=== PATIENT | male | born 1995 | race Caucasian/White ===

== ENCOUNTER 2016-10-07 19:41 | Emergency (ER) | payer OTHER ==
--- NOTE | 2016-10-07 22:07 | DIAGNOSTIC IMAGING REPORT ---
PROCEDURE: CT ABD/PELVIS WITH CONTRAST INDICATION: Nausea. Vomiting. Diarrhea. Elevated white blood count (12,200). TECHNIQUE: of Isovue 300 were injected intravenously and axial images were obtained of the entire abdomen and pelvis with sagittal and coronal reformations. COMPARISON: None. FINDINGS: ABDOMEN: There is a 20 - 30 cm segment of moderate abnormal mucosal thickening of the distal ileum. This is associated a small amount of adjacent free fluid, mildly prominent mesenteric lymph nodes. Colon and appendix appear normal. Gallbladder is normal. Mild to moderate fatty infiltration of the liver. the distal ileum associated with small amount of localized fluid. Spleen (13.5 cm), pancreas, kidneys, and aorta are normal. Bilateral spondylolysis defects at L5, but no evidence of spondylolisthesis. PELVIS: Small amount of free fluid in the pelvis. Pelvic structures are normal. IMPRESSION: 1. There is a 20-30 cm segment of abnormal mucosal thickening of the distal ileum. Overall appearance is most compatible with segmental inflammatory bowel disease (e.g., Crohn disease). Infectious etiology is less likely. 2. Associated small amount of free fluid in the right lower quadrant and pelvis. 3. Associated mildly prominent right mesenteric lymph nodes. 4. Fatty infiltration of the liver. 5. Bilateral spondylolysis defects L5, but no evidence of spondylolisthesis. 6. Findings discussed with NANCY Leon. All CT scans at this facility use dose modulation, iterative reconstruction, and/or weight-based dosing when appropriate to reduce radiation dose to as low as reasonably achievable.
--- NOTE | 2016-10-07 22:11 | ED NURSING NOTES ---
Clinical Report - Nurses [facility] [address] [place] [address] 10/07/2016 19:43 Patient: HARJEET ARAGON TRIAGE Triage time 20:Oct 07 2016. Acuity: LEVEL 3. Chief Complaint: ABDOMINAL PAIN, NAUSEA, VOMITING and DIARRHEA. SEPSIS SCREEN: Sepsis Screen: negative. Negative (no infection suspected/documented). DEANDRA COMA SCORE: Deandra Coma Scale: 15- eyes open spontaneously (4); best verbal response- oriented x 4 (5); best motor response- obeys commands (6). --20:23 Yenny Mcmahon 20:19 10/07/16. BP: 158/98. HR: 100. RR: 18. O2 saturation: 97%. Temp: 98.4 F (oral). Pain level now: 10/01. --20:23 Yenny Mcmahon. Weight: 136 kg stated. Height/Length: 70 inches Per Patient. BMI: 43. --20:19 Yenny Mcmahon. Medications None. --20:22 Yenny Mcmahon. Allergies No Known Drug Allergy. --20:22 Yneny Mcmahon. Medication/allergy information source: the patient. --20:23 Yenny Mcmahon. History Arrived by private vehicle. Historian: patient. Primary physician (none). ( Patient reports abdominal pain for three days. He reports nausea, vomiting and diarrhea. He reports that one year ago he was being seen regarding a potential diagnosis for chrohns. He reports that he lost his insurance and did not complete treatment. Patient reports decreased oral intake.). PAST MEDICAL HX: Immunizations: status is unknown. SOCIAL HX: Never smoker. History of drug use: marijuana. No alcohol use. No recent travel. No infectious disease exposure. No known contact with a sick individual. ABUSE ASSESSMENT: No report of abuse. FALL RISK ASSESSMENT: Fall risk assessment completed. No fall risk identified. NUTRITIONAL RISK ASSESSMENT: The nutritional risk assessment revealed no deficiencies. FUNCTIONAL ASSESSMENT: Functional assessment: no impairments noted. LEARNING NEEDS ASSESSMENT: The learning needs assessment revealed no barriers. SKIN INTEGRITY ASSESSMENT: Skin integrity risk assessment completed. No skin integrity risk identified. --20:23 Yenny Mcmahon. PROBLEMS: no known problems. ADDITIONAL SURGERIES: Tonsillectomy. --20:22 Yenny Mcmahon. Interventions ID band on patient. To treatment room. --20:23 Yenny Mcmahon. PHYSICAL ASSESSMENT GENERAL / NEURO / PSYCH: Alert. Oriented X 4. Appears in no acute distress. HEENT: Mucous membranes are pink. RESPIRATORY: Respirations not labored. CVS: Cardiac rhythm: sinus tachycardia; (100). GI / : Abdomen soft. Abdominal tenderness in the periumbilical area. SKIN: Skin is warm and dry. --20:23 Yenny Mcmahon. NURSING PROGRESS NOTES Pulse oximeter and NIBP monitor placed on patient; monitor alarms on. Patient gowned. Reassurance given to the patient. Two patient identifiers checked. Call light placed in reach. Side rails up x 1. Bed placed in lowest position. Brakes of bed on. Patient ready for evaluation- chart flagged and ED physician notified. --20:24 Yenny Mcmahon 20:40 10/07/2016 Site #1 started via IV in the right hand with an 20g angiocath, with aseptic technique and good blood return; one attempt. Blood drawn: rainbow set. Labeled in the presence of the patient and sent to the lab. Saline lock flushed with 10 mL saline. --20:55 Yenny Mcmahon Patient ID band checked for patient name and birthdate: patient confirmed. Blood samples drawn from the right hand peripheral IV site with Vacutainer by nurse ; labeled in presence of the patient and sent to lab: rainbow set. Line flushed with 10 mL normal saline post blood draw. Patient ID band checked for patient name and birthdate: patient confirmed. Instructions provided to collect clean catch urine and patient verbalized understanding. Clean catch urine collected with return of yellow-colored clear urine; sample sent to lab for urinalysis. Specimen labeled in the presence of the patient. --20:56 Yenny Mcmahon 21:01 10/07/2016 Started bag #1 1000 mL IV Fluids IV NS (Saline); at 1000 mL/hr over 1 hour(s) via site #1. Allergies verified and confirmed 5 rights. IV patency established. IV site checked: no pain, redness, or swelling. IV flushed thoroughly pre- and post-medication administration. --21:01 Yenny Mcmahon 21:10/07/2016 Toradol IVP 30 mg given over 1 minute(s) via site #1. Allergies verified and confirmed 5 rights. IV patency established. IV site checked: no pain, redness, or swelling. IV flushed thoroughly pre- and post-medication administration. IVP given by RN. --21:01 Yenny Mcmahon 21:10/07/2016 Zofran (Ondansetron HCl) IVP 4 mg given over 1 minute(s) via site #1. Allergies verified and confirmed 5 rights. IV patency established. IV site checked: no pain, redness, or swelling. IV flushed thoroughly pre- and post-medication administration. IVP given by RN. --21:02 Yenny Mcmahon 21:08 10/07/16. BP: 142/94. HR: 77. O2 saturation: 98%. --21:08 McQuoid, Vickie, ER Tech1 ( Lab at bedside for redraw). --21:14 Yenny Mcmahon Patient transported to [place] by stretcher with tech. (21:33 Oct 07 2016). --21:33 Yenny Mcmahon 22:11 10/07/2016 IV Fluids IV NS Discontinued: bag #1 completed. Total amount infused: 1000 mL. IV patency established. IV site checked: no pain, redness, or swelling. IV flushed thoroughly. --22:11 Yenny Mcmahon 22:17 10/07/2016 Decadron IVP 10 mg given over 4 minute(s) via site #1. Allergies verified and confirmed 5 rights. IV patency established. IV site checked: no pain, redness, or swelling. IV flushed thoroughly pre- and post-medication administration. IVP given by RN. --22:17 Yenny Mcmahon. DISPOSITION / DISCHARGE 22:15 10/07/16. BP: 128/60. HR: 70. RR: 20. O2 saturation: 98% on room air. Pain level now: 10. --22:16 Yenny Mcmahon 22:35 10/07/16. BP: 128/60. HR: 87. RR: 20. O2 saturation: 97% on room air. Temp: 98.9 F (oral). Pain level now: 06/03. --22:51 Yenny Mcmahon 22:30 10/07/2016 Site #1 removed upon discharge. Catheter intact. Bandaid applied. --22:51 Yenny Mcmahon 22:35 10/07/16. Condition at departure: stable. The goals identified in the patient's plan of care were met. No learning barriers present. Discharge instructions provided and reviewed with the patient. Reviewed medication(s) side effects, precautions, dosing and course information. Prescription(s) given to the patient. Reviewed referral to a criminal justice instructor for followup. Reviewed bland diet and need for increased fluid intake. Work note given. Patient verbalized understanding. Written instructions provided in Arabic. ( Follow up with GI in two days. Return if symptoms worsen. Discussed diet options and need for follow up care to manage symptoms. Patient verbalized understanding and had no additional questions at this time.). The patient was discharged by the physician assistant food service manager. He was discharged home and accompanied by boarder hand. He left the Emergency Department ambulatory and via private vehicle. Nba Player driving. FALL RISK ASSESSMENT: Fall risk assessment completed. No fall risk identified. --22:51 Yenny Mcmahon. Locked/Released at 10/08/2016 1:17 by Yenny Mcmahon,
--- NOTE | 2016-10-07 22:11 | ED ORDER SUMMARY ---
..... Patient: HARJEET ARAGON OrderSheet [facility] VisitID: [id number] [place] [address] 21y, M Registration Date/Time: 10/07/2016 ORDER SHEET Weight: 136.0 kg (stated) Allergies: No Known Drug Allergy GENERAL ORDERS: CT Abd/Pel w Cont (No) (pending) Urgent (20:51 10/07/2016 HBivens A.R.N.P.) (Ack 20:53 RKaruga) (21:41 MCampbell) CBC w Diff Urgent (20:51 10/07/2016 HBivens A.R.N.P.) (Ack 20:53 RKaruga) (22:52 HSoule) CMP Urgent (20:10/07/2016 HBivens A.R.N.P.) (Ack 20:53 RKaruga) (22:52 HSoule) UA-Culture if indicated Urgent (20:10/07/2016 HBivens A.R.N.P.) (Ack 20:53 RKaruga) (22:52 HSoule) Amylase Urgent (20:10/07/2016 HBivens A.R.N.P.) (Ack 20:53 RKaruga) (22:52 HSoule) Lipase Urgent (20:10/07/2016 HBivens A.R.N.P.) (Ack 20:53 RKaruga) (22:52 HSoule) Urine Drug Screen Urgent (20:10/07/2016 HBivens A.R.N.P.) (Ack 20:53 RKaruga) (22:52 HSoule) MEDICATION ORDERS: IV FLUIDS: IV NS : initial bolus 1000 mL (1000 mL/hr), then none - (NOW) (20:51 10/07/2016 HBivens A.R.N.P.) (Ack 20:55 HSoule) (21:01 HSoule) Toradol IV 30 mg (NOW) (20:51 10/07/2016 HBivens A.R.N.P.) (Ack 20:55 HSoule) (21:01 HSoule) Zofran IV 4 mg (NOW) (20:51 10/07/2016 HBivens A.R.N.P.) (Ack 20:55 HSoule) (21:01 HSoule) IV Saline Lock (20:51 10/07/2016 HBivens A.R.N.P.) (20:55 HSoule) Decadron IV 10 mg (NOW) (22:10 10/07/2016 HBivens A.R.N.P.) (Ack 22:11 HSoule) (22:17 HSoule) ORDER SHEET NOTES: [Electronically signed by Shey Chisholm A.R.N.P. (22:39 10/07/2016)] [Electronically signed by Yenny Mcmahon (:17 10/08/2016)] [Electronically locked/signed by Yenny Mcmahon (:10/08/2016)]
--- NOTE | 2016-10-07 22:11 | ED CLINICAL REPORT ---
Clinical Report - Physicians/Mid Levels [facility] [address] [place] [address] 10/07/2016 19:43 Patient: HARJEET ARAGON Time Seen: 20:25; initial patient contact, initial documentation, patient care assumed. Arrived- By private vehicle. Historian- patient. HISTORY OF PRESENT ILLNESS Chief Complaint: VOMITING and DIARRHEA. This started about 3 days ago and is still present. It was abrupt in onset and has been constant. No recent travel. He has had nausea and abdominal pain. He has had vomiting. The vomiting has occurred several times and has been bilious. No feculent emesis, blood-tinged emesis, coffee-grounds emesis, frankly bloody emesis or unusually dark emesis. He has had severe diarrhea. This has occurred numerous times. It has been watery. No bloody, mucous containing or blood-tinged diarrhea. No black stools, bloody stools, constipation, flank pain or history of possible bad food exposure. No known contact with a sick individual or change in routine. Has not recently been camping or on antibiotics. The illness is described as moderate. Similar symptoms previously: Many times, chronically, milder. ( was told about a year ago, he probably had chrohns disease, never f/u with anyone). Recent medical care: Not recently seen/assessed. REVIEW OF SYSTEMS No fever, difficulty with urination, dark urine, chest pain or difficulty breathing. All systems otherwise negative, except as recorded above. PAST HISTORY See nurses notes. PROBLEMS: no known problems. ADDITIONAL SURGERIES: Tonsillectomy. --20:22 Yenny Mcmahon. SOCIAL HISTORY Never smoker. History of occasional drug use: marijuana. No alcohol use. No recent travel. Is a local resident. FAMILY HISTORY Negative. ADDITIONAL NOTES The nursing notes have been reviewed with agreement regarding the chief complaint, HPI, ROS, PMH and patient medications and allergies. PHYSICAL EXAM Vital Signs: 10/07/2016 20:19 BP: 158/98. HR: 100. RR: 18. O2 saturation: 97%. Temp: 98.4 F. Pain level now: 6/10. Have been reviewed as abnormal. Hypertensive. Heart rate normal. Respiratory rate normal. Temperature normal. Oxygen saturation normal. Appearance: Alert. Oriented X3. No acute distress. Eyes: Pupils equal, round and reactive to light. Eyes normal inspection. Neck: Normal inspection. Neck supple. CVS: Normal heart rate and rhythm. Heart sounds normal. Pulses normal. Respiratory: No respiratory distress. Breath sounds normal. Abdomen: Soft. Mild tenderness in the periumbilical area. No guarding, rebound tenderness or Garg's, obturator or psoas sign present. Bowel sounds normal. No organomegaly. No mass. Moderately obese. Tenderness present. Back: Normal inspection. Skin: Skin warm and dry. Normal skin color. No rash. Normal skin turgor. Extremities: Extremities exhibit normal ROM. No lower extremity edema. Neuro: Oriented X 3. No motor deficit. No sensory deficit. LABS, X-RAYS, AND EKG Abdominal CT: . IMPRESSION: 1. There is a 20-30 cm segment of abnormal mucosal thickening of the distal ileum. Overall appearance is most compatible with segmental inflammatory bowel disease (e.g., Crohn disease). Infectious etiology is less likely. 2. Associated small amount of free fluid in the right lower quadrant and pelvis. 3. Associated mildly prominent right mesenteric lymph nodes. 4. Fatty infiltration of the liver. 5. Bilateral spondylolysis defects L5, but no evidence of spondylolisthesis. 6. Findings discussed with NANCY Leon. All CT scans at this facility use dose modulation, iterative reconstruction, and/or weight-based dosing when appropriate to reduce radiation dose to as low as reasonably achievable. Electronically Final signed by:Dung Escalante MD 10/07/2016 10:02:42 PM. The study was interpreted by the radiologist and discussed with the radiologist. Interpretation time: 22:04. Laboratory Tests: UA-Culture if indicated: (CARMELA: 10/07/2016 20:30) ( MsgRcvd 10/07/2016 21:26) Final results Test Result Flag Units (Reference) URINE COLOR YELLOW URINE APPEARANCE CLEAR URINE GLUCOSE NEGATIVE (NEGATIVE) URINE BILIRUBIN ICTOTEST NEGATIVE (NEGATIVE) URINE KETONE 1+ (NEGATIVE) URINE SPECIFIC GRAVITY 1.025 (1.010-1.030) URINE PH 6.0 (5.0-8.0) URINE PROTEIN NEGATIVE (NEGATIVE) URINE UROBILINOGEN 0.2 EU/dL (0.2-1.0) URINE NITRITE NEGATIVE (NEGATIVE) URINE BLOOD NEGATIVE (NEGATIVE) URINE LEUK ESTERASE NEGATIVE (NEGATIVE) URINE RBC 0-1 rbc/hpf (0-1) URINE WBC 10-15 wbc/hpf (0-1) URINE EPITHELIAL CELLS 0-1 EPI/hpf (0-5) URINE BACTERIA FEW (1+) (NONE SEEN) URINE COMMENT CULTURE INDICATED 2+ MUCUSURINE CULTURES ARE SET-UP BASED ON THE FOLLOWING CRITERIA:POSITIVE NITRITEPOSITIVE LEUKOCYTE ESTERASEGREATER THAN 10 WHITE BLOOD CELLSMODERATE (2+) OR GREATER BACTERIA CBC w Diff: (CARMELA: 10/07/2016 21:05) ( [facility] 10/07/2016 21:17) Final results Test Result Flag Units (Reference) WHITE BLOOD COUNT 12.2 H K/uL (4.5-11.5) RED BLOOD COUNT 5.67 M/uL (4.50-5.90) HEMOGLOBIN 16.4 gm/dL (13.5-17.5) HEMATOCRIT 48.5 % (41.0-53.0) MEAN CELL VOLUME 86 fL (80-100) MEAN CORPUSCULAR HGB 29 pg (26-34) MEAN CORPUSCULAR HGB CONC 34 g/dL (31-37) RED CELL DISTRIBUTION WIDTH 12.7 % (11.6-14.8) PLATELET COUNT 343 K/uL (150-400) NEUTROPHIL % 67.2 % (50-75) LYMPH % 20.3 L % (25-40) MONO % 9.1 % (3-14) EOSINOPHIL % 2.6 % (0-4) BASOPHIL % 0.8 % (0-2) Urine Drug Screen: (CARMELA: 10/07/2016 20:30) ( [facility] 10/07/2016 21:27) Final results Test Result Flag Units (Reference) AMPHETAMINE/METHAMPHETAMINE NEGATIVE (NEGATIVE) BARBITURATE NEGATIVE (NEGATIVE) BENZODIAZEPINE NEGATIVE (NEGATIVE) CANNABINOID POSITIVE H (NEGATIVE) COCAINE NEGATIVE (NEGATIVE) ECSTASY NEGATIVE (NEGATIVE) METHADONE NEGATIVE (NEGATIVE) OPIATE NEGATIVE (NEGATIVE) The urine drug screen is a qualitative screening test fordrug overdose and abuse. All screen results should beconsidered as presumptive.Drugs screened for are as follows:BenzodiazepinesCocaineAmphetamines/MetamphetaminesTHC (Tetrahydrocannabinol)OpiatesBarbituratesEcstasyMethadonePositive results are unconfirmed. For confirmation, notifythe lab for the specimen to be sent to the reference lab.All confirmations must be performed by a differentmethodology.The ingestion of natural herbal and plant productscontaining Ephedra/Ephedra metabolites can produce in urineone or more substances capable of cross reacting withamphetamine/methamphetamine immunoassays. These testsprovide a preliminary result only. A more specificalternative chemical method must be used to obtain aconfirmed analytical result. CMP: (CARMELA: 10/07/2016 21:05) ( MsgRcvd 10/07/2016 21:26) Final results Test Result Flag Units (Reference) GLUCOSE 93 mg/dL (70-110) BUN 11 mg/dL (7-18) CREATININE 0.9 mg/dL (0.6-1.3) Estimated GFR >60 mL/min Estimated GFR- >60 mL/min Note: Persistent reduction over 3 months in eGFR<60 mL/min/1.73 m2 defines CKD. Patients with eGFR values>=60 mL/min/1.73 m2 may also have CKD if evidence ofpersistent proteinuria. Additional information may be foundat www.kidney.org. SODIUM 143 mmol/L (136-145) POTASSIUM 3.9 mmol/L (3.5-5.1) CHLORIDE 105 mmol/L (98-107) CARBON DIOXIDE 26 mmol/L (21-32) CALCIUM 9.7 mg/dL (8.5-10.1) TOTAL PROTEIN 8.2 g/dL (6.4-8.2) ALBUMIN 4.0 g/dL (3.3-5.0) BILIRUBIN, TOTAL 0.6 mg/dL (0.0-1.0) ALKALINE PHOSPHATASE 73 U/L (46-116) AST (SGOT) 24 U/L (15-37) ALT (SGPT) 60 U/L (12-78) LIPASE 79 U/L (73-393) AMYLASE 39 U/L (25-115) . PROGRESS AND PROCEDURES Patient counseled in person regarding the patient's stable condition, test results and diagnosis. Differential Diagnosis: I considered gastritis, gastroenteritis, peptic ulcer disease, gastroesophageal reflux disease, acute appendicitis, diverticulitis, colon cancer, ulcerative colitis, Crohn's disease, obstipation, biliary colic, cholecystitis, cholelithiasis, hepatitis, pancreatitis, common bile duct obstruction, urinary tract infection, ureterolithiasis and viral syndrome as a possible cause of abdominal pain in this patient. This is a partial list of diagnoses considered. Above considerations are based on history, physical exam, reassessment, laboratory data and other information. Differential diagnosis was discussed with patient. Disposition: Discharged home in good and improved condition (22:10). Condition: good and stable. CLINICAL IMPRESSION Crohn's disease in the small intestine. No complications present. INSTRUCTIONS Do not work today, for two days. Avoid fried/greasy foods. (HTN). Warnings: GENERAL WARNINGS: Return or contact your physician immediately if your condition worsens or changes unexpectedly, if not improving as expected, or if other problems arise. SPECIFICALLY, return if you develop pain in the abdomen or pelvis, fever, the inability to keep fluids down, blood in vomitus, blood in diarrhea, fainting or lightheadedness. Prescription Medications: Zofran 4 mg: Take 1 orally every six hours as needed for nausea/vomiting. Dispense ten (10). No refills. Substitution is permissible. Bentyl 20 mg tablets: take 1 orally every 6 hours as needed. Dispense thirty (30). No refills. Substitution is permissible. Ultram 50 mg tablets: take 1-2 orally every 6 hours as needed for pain. Dispense twenty (20). No refills. Substitution is permissible. Medrol Dosepak: take according to package directions. Dispense one (1) dosepak. No refills. Substitution is permissible. Understanding of the discharge instructions verbalized by patient. Follow-up with: Pro William MD, Gastroenterology, , [address] , , [place], [id number]; Umang Hogan MD, Gastroenterology, , [facility], [address], [place], [id number]; Anuja Irving MD, Gastroenteroloy, , [address] [place] [address] [address], [place], [id number]; Juan Antonio Whiting MD, Gastroenteroloy, , [address] [place] [address] [address], [place], [id number]; Reed Romero MD, Gastroenteroloy, , [address] [place] [address] [address], [place], [id number] Follow up in about two days even if well. Call for an appointment. Summary of care provided to patient. (Electronically signed by Shey Chisholm A.R.N.P. 10/07/2016 22:39)
--- NOTE | 2016-10-07 22:11 | ED CLINICAL REPORT ---
Clinical Report - Physicians/Mid Levels [facility] [address] [place] [address] 10/07/2016 19:43 Patient: HARJEET ARAGON Time Seen: 20:25; initial patient contact, initial documentation, patient care assumed. Arrived- By private vehicle. Historian- patient. HISTORY OF PRESENT ILLNESS Chief Complaint: VOMITING and DIARRHEA. This started about 3 days ago and is still present. It was abrupt in onset and has been constant. No recent travel. He has had nausea and abdominal pain. He has had vomiting. The vomiting has occurred several times and has been bilious. No feculent emesis, blood-tinged emesis, coffee-grounds emesis, frankly bloody emesis or unusually dark emesis. He has had severe diarrhea. This has occurred numerous times. It has been watery. No bloody, mucous containing or blood-tinged diarrhea. No black stools, bloody stools, constipation, flank pain or history of possible bad food exposure. No known contact with a sick individual or change in routine. Has not recently been camping or on antibiotics. The illness is described as moderate. Similar symptoms previously: Many times, chronically, milder. ( was told about a year ago, he probably had chrohns disease, never f/u with anyone). Recent medical care: Not recently seen/assessed. REVIEW OF SYSTEMS No fever, difficulty with urination, dark urine, chest pain or difficulty breathing. All systems otherwise negative, except as recorded above. PAST HISTORY See nurses notes. PROBLEMS: no known problems. ADDITIONAL SURGERIES: Tonsillectomy. --20:22 Yenny Mcmahon. SOCIAL HISTORY Never smoker. History of occasional drug use: marijuana. No alcohol use. No recent travel. Is a local resident. FAMILY HISTORY Negative. ADDITIONAL NOTES The nursing notes have been reviewed with agreement regarding the chief complaint, HPI, ROS, PMH and patient medications and allergies. PHYSICAL EXAM Vital Signs: 10/07/2016 20:19 BP: 158/98. HR: 100. RR: 18. O2 saturation: 97%. Temp: 98.4 F. Pain level now: 6/10. Have been reviewed as abnormal. Hypertensive. Heart rate normal. Respiratory rate normal. Temperature normal. Oxygen saturation normal. Appearance: Alert. Oriented X3. No acute distress. Eyes: Pupils equal, round and reactive to light. Eyes normal inspection. Neck: Normal inspection. Neck supple. CVS: Normal heart rate and rhythm. Heart sounds normal. Pulses normal. Respiratory: No respiratory distress. Breath sounds normal. Abdomen: Soft. Mild tenderness in the periumbilical area. No guarding, rebound tenderness or Garg's, obturator or psoas sign present. Bowel sounds normal. No organomegaly. No mass. Moderately obese. Tenderness present. Back: Normal inspection. Skin: Skin warm and dry. Normal skin color. No rash. Normal skin turgor. Extremities: Extremities exhibit normal ROM. No lower extremity edema. Neuro: Oriented X 3. No motor deficit. No sensory deficit. LABS, X-RAYS, AND EKG Abdominal CT: . IMPRESSION: 1. There is a 20-30 cm segment of abnormal mucosal thickening of the distal ileum. Overall appearance is most compatible with segmental inflammatory bowel disease (e.g., Crohn disease). Infectious etiology is less likely. 2. Associated small amount of free fluid in the right lower quadrant and pelvis. 3. Associated mildly prominent right mesenteric lymph nodes. 4. Fatty infiltration of the liver. 5. Bilateral spondylolysis defects L5, but no evidence of spondylolisthesis. 6. Findings discussed with NANCY Leon. All CT scans at this facility use dose modulation, iterative reconstruction, and/or weight-based dosing when appropriate to reduce radiation dose to as low as reasonably achievable. Electronically Final signed by:Dung Escalante MD 10/07/2016 10:02:42 PM. The study was interpreted by the radiologist and discussed with the radiologist. Interpretation time: 22:04. Laboratory Tests: UA-Culture if indicated: (CARMELA: 10/07/2016 20:30) ( MsgRcvd 10/07/2016 21:26) Final results Test Result Flag Units (Reference) URINE COLOR YELLOW URINE APPEARANCE CLEAR URINE GLUCOSE NEGATIVE (NEGATIVE) URINE BILIRUBIN ICTOTEST NEGATIVE (NEGATIVE) URINE KETONE 1+ (NEGATIVE) URINE SPECIFIC GRAVITY 1.025 (1.010-1.030) URINE PH 6.0 (5.0-8.0) URINE PROTEIN NEGATIVE (NEGATIVE) URINE UROBILINOGEN 0.2 EU/dL (0.2-1.0) URINE NITRITE NEGATIVE (NEGATIVE) URINE BLOOD NEGATIVE (NEGATIVE) URINE LEUK ESTERASE NEGATIVE (NEGATIVE) URINE RBC 0-1 rbc/hpf (0-1) URINE WBC 10-15 wbc/hpf (0-1) URINE EPITHELIAL CELLS 0-1 EPI/hpf (0-5) URINE BACTERIA FEW (1+) (NONE SEEN) URINE COMMENT CULTURE INDICATED 2+ MUCUSURINE CULTURES ARE SET-UP BASED ON THE FOLLOWING CRITERIA:POSITIVE NITRITEPOSITIVE LEUKOCYTE ESTERASEGREATER THAN 10 WHITE BLOOD CELLSMODERATE (2+) OR GREATER BACTERIA CBC w Diff: (CARMELA: 10/07/2016 21:05) ( [facility] 10/07/2016 21:17) Final results Test Result Flag Units (Reference) WHITE BLOOD COUNT 12.2 H K/uL (4.5-11.5) RED BLOOD COUNT 5.67 M/uL (4.50-5.90) HEMOGLOBIN 16.4 gm/dL (13.5-17.5) HEMATOCRIT 48.5 % (41.0-53.0) MEAN CELL VOLUME 86 fL (80-100) MEAN CORPUSCULAR HGB 29 pg (26-34) MEAN CORPUSCULAR HGB CONC 34 g/dL (31-37) RED CELL DISTRIBUTION WIDTH 12.7 % (11.6-14.8) PLATELET COUNT 343 K/uL (150-400) NEUTROPHIL % 67.2 % (50-75) LYMPH % 20.3 L % (25-40) MONO % 9.1 % (3-14) EOSINOPHIL % 2.6 % (0-4) BASOPHIL % 0.8 % (0-2) Urine Drug Screen: (CARMELA: 10/07/2016 20:30) ( [facility] 10/07/2016 21:27) Final results Test Result Flag Units (Reference) AMPHETAMINE/METHAMPHETAMINE NEGATIVE (NEGATIVE) BARBITURATE NEGATIVE (NEGATIVE) BENZODIAZEPINE NEGATIVE (NEGATIVE) CANNABINOID POSITIVE H (NEGATIVE) COCAINE NEGATIVE (NEGATIVE) ECSTASY NEGATIVE (NEGATIVE) METHADONE NEGATIVE (NEGATIVE) OPIATE NEGATIVE (NEGATIVE) The urine drug screen is a qualitative screening test fordrug overdose and abuse. All screen results should beconsidered as presumptive.Drugs screened for are as follows:BenzodiazepinesCocaineAmphetamines/MetamphetaminesTHC (Tetrahydrocannabinol)OpiatesBarbituratesEcstasyMethadonePositive results are unconfirmed. For confirmation, notifythe lab for the specimen to be sent to the reference lab.All confirmations must be performed by a differentmethodology.The ingestion of natural herbal and plant productscontaining Ephedra/Ephedra metabolites can produce in urineone or more substances capable of cross reacting withamphetamine/methamphetamine immunoassays. These testsprovide a preliminary result only. A more specificalternative chemical method must be used to obtain aconfirmed analytical result. CMP: (CARMELA: 10/07/2016 21:05) ( MsgRcvd 10/07/2016 21:26) Final results Test Result Flag Units (Reference) GLUCOSE 93 mg/dL (70-110) BUN 11 mg/dL (7-18) CREATININE 0.9 mg/dL (0.6-1.3) Estimated GFR >60 mL/min Estimated GFR- >60 mL/min Note: Persistent reduction over 3 months in eGFR<60 mL/min/1.73 m2 defines CKD. Patients with eGFR values>=60 mL/min/1.73 m2 may also have CKD if evidence ofpersistent proteinuria. Additional information may be foundat www.kidney.org. SODIUM 143 mmol/L (136-145) POTASSIUM 3.9 mmol/L (3.5-5.1) CHLORIDE 105 mmol/L (98-107) CARBON DIOXIDE 26 mmol/L (21-32) CALCIUM 9.7 mg/dL (8.5-10.1) TOTAL PROTEIN 8.2 g/dL (6.4-8.2) ALBUMIN 4.0 g/dL (3.3-5.0) BILIRUBIN, TOTAL 0.6 mg/dL (0.0-1.0) ALKALINE PHOSPHATASE 73 U/L (46-116) AST (SGOT) 24 U/L (15-37) ALT (SGPT) 60 U/L (12-78) LIPASE 79 U/L (73-393) AMYLASE 39 U/L (25-115) . PROGRESS AND PROCEDURES Patient counseled in person regarding the patient's stable condition, test results and diagnosis. Differential Diagnosis: I considered gastritis, gastroenteritis, peptic ulcer disease, gastroesophageal reflux disease, acute appendicitis, diverticulitis, colon cancer, ulcerative colitis, Crohn's disease, obstipation, biliary colic, cholecystitis, cholelithiasis, hepatitis, pancreatitis, common bile duct obstruction, urinary tract infection, ureterolithiasis and viral syndrome as a possible cause of abdominal pain in this patient. This is a partial list of diagnoses considered. Above considerations are based on history, physical exam, reassessment, laboratory data and other information. Differential diagnosis was discussed with patient. Disposition: Discharged home in good and improved condition (22:10). Condition: good and stable. CLINICAL IMPRESSION Crohn's disease in the small intestine. No complications present. INSTRUCTIONS Do not work today, for two days. Avoid fried/greasy foods. (HTN). Warnings: GENERAL WARNINGS: Return or contact your physician immediately if your condition worsens or changes unexpectedly, if not improving as expected, or if other problems arise. SPECIFICALLY, return if you develop pain in the abdomen or pelvis, fever, the inability to keep fluids down, blood in vomitus, blood in diarrhea, fainting or lightheadedness. Prescription Medications: Zofran 4 mg: Take 1 orally every six hours as needed for nausea/vomiting. Dispense ten (10). No refills. Substitution is permissible. Bentyl 20 mg tablets: take 1 orally every 6 hours as needed. Dispense thirty (30). No refills. Substitution is permissible. Ultram 50 mg tablets: take 1-2 orally every 6 hours as needed for pain. Dispense twenty (20). No refills. Substitution is permissible. Medrol Dosepak: take according to package directions. Dispense one (1) dosepak. No refills. Substitution is permissible. Understanding of the discharge instructions verbalized by patient. Follow-up with: Pro William MD, Gastroenterology, , [address] , , [place], [id number]; Umang Hogan MD, Gastroenterology, , [facility], [address], [place], [id number]; Anuja Irving MD, Gastroenteroloy, , [address] [place] [address] [address], [place], [id number]; Juan Antonio Whiting MD, Gastroenteroloy, , [address] [place] [address] [address], [place], [id number]; Reed Romero MD, Gastroenteroloy, , [address] [place] [address] [address], [place], [id number] Follow up in about two days even if well. Call for an appointment. Summary of care provided to patient. (Electronically signed by Shey Chisholm A.R.N.P. 10/07/2016 22:39)
--- NOTE | 2016-10-07 22:11 | ED ORDER SUMMARY ---
..... Patient: HARJEET ARAGON OrderSheet [facility] VisitID: [id number] [place] [address] 21y, M Registration Date/Time: 10/07/2016 ORDER SHEET Weight: 136.0 kg (stated) Allergies: No Known Drug Allergy GENERAL ORDERS: CT Abd/Pel w Cont (No) (pending) Urgent (20:51 10/07/2016 HBivens A.R.N.P.) (Ack 20:53 RKaruga) (21:41 MCampbell) CBC w Diff Urgent (20:51 10/07/2016 HBivens A.R.N.P.) (Ack 20:53 RKaruga) (22:52 HSoule) CMP Urgent (20:10/07/2016 HBivens A.R.N.P.) (Ack 20:53 RKaruga) (22:52 HSoule) UA-Culture if indicated Urgent (20:10/07/2016 HBivens A.R.N.P.) (Ack 20:53 RKaruga) (22:52 HSoule) Amylase Urgent (20:10/07/2016 HBivens A.R.N.P.) (Ack 20:53 RKaruga) (22:52 HSoule) Lipase Urgent (20:10/07/2016 HBivens A.R.N.P.) (Ack 20:53 RKaruga) (22:52 HSoule) Urine Drug Screen Urgent (20:10/07/2016 HBivens A.R.N.P.) (Ack 20:53 RKaruga) (22:52 HSoule) MEDICATION ORDERS: IV FLUIDS: IV NS : initial bolus 1000 mL (1000 mL/hr), then none - (NOW) (20:51 10/07/2016 HBivens A.R.N.P.) (Ack 20:55 HSoule) (21:01 HSoule) Toradol IV 30 mg (NOW) (20:51 10/07/2016 HBivens A.R.N.P.) (Ack 20:55 HSoule) (21:01 HSoule) Zofran IV 4 mg (NOW) (20:51 10/07/2016 HBivens A.R.N.P.) (Ack 20:55 HSoule) (21:01 HSoule) IV Saline Lock (20:51 10/07/2016 HBivens A.R.N.P.) (20:55 HSoule) Decadron IV 10 mg (NOW) (22:10 10/07/2016 HBivens A.R.N.P.) (Ack 22:11 HSoule) (22:17 HSoule) ORDER SHEET NOTES: [Electronically signed by Shey Chisholm A.R.N.P. (22:39 10/07/2016)] [Electronically signed by Yenny Mcmahon (:17 10/08/2016)] [Electronically locked/signed by Yenny Mcmahon (:10/08/2016)]
--- NOTE | 2016-10-07 22:11 | ED NURSING NOTES ---
Clinical Report - [facility] [address] [place] [address] 10/07/2016 19:43 Patient: HARJEET ARAGON TRIAGE Triage time 20:Oct 07 2016. Acuity: LEVEL 3. Chief Complaint: ABDOMINAL PAIN, NAUSEA, VOMITING and DIARRHEA. SEPSIS SCREEN: Sepsis Screen: negative. Negative (no infection suspected/documented). DEANDRA COMA SCORE: Deandra Coma Scale: 15- eyes open spontaneously (4); best verbal response- oriented x 4 (5); best motor response- obeys commands (6). --20:23 Yenny Mcmahon 20:19 10/07/16. BP: 158/98. HR: 100. RR: 18. O2 saturation: 97%. Temp: 98.4 F (oral). Pain level now: 10/01. --20:23 Yenny Mcmahon. Weight: 136 kg stated. Height/Length: 70 inches Per Patient. BMI: 43. --20:19 Yenny Mcmahon. Medications None. --20:22 Yenny Mcmahon. Allergies No Known Drug Allergy. --20:22 Yenny Mcmahon. Medication/allergy information source: the patient. --20:23 Yenny Mcmahon. History Arrived by private vehicle. Historian: patient. Primary physician (none). ( Patient reports abdominal pain for three days. He reports nausea, vomiting and diarrhea. He reports that one year ago he was being seen regarding a potential diagnosis for chrohns. He reports that he lost his insurance and did not complete treatment. Patient reports decreased oral intake.). PAST MEDICAL HX: Immunizations: status is unknown. SOCIAL HX: Never smoker. History of drug use: marijuana. No alcohol use. No recent travel. No infectious disease exposure. No known contact with a sick individual. ABUSE ASSESSMENT: No report of abuse. FALL RISK ASSESSMENT: Fall risk assessment completed. No fall risk identified. NUTRITIONAL RISK ASSESSMENT: The nutritional risk assessment revealed no deficiencies. FUNCTIONAL ASSESSMENT: Functional assessment: no impairments noted. LEARNING NEEDS ASSESSMENT: The learning needs assessment revealed no barriers. SKIN INTEGRITY ASSESSMENT: Skin integrity risk assessment completed. No skin integrity risk identified. --20:23 Yenny Mcmahon. PROBLEMS: no known problems. ADDITIONAL SURGERIES: Tonsillectomy. --20:22 Yenny Mcmahon. Interventions ID band on patient. To treatment room. --20:23 Yenny Mcmahon. PHYSICAL ASSESSMENT GENERAL / NEURO / PSYCH: Alert. Oriented X 4. Appears in no acute distress. HEENT: Mucous membranes are pink. RESPIRATORY: Respirations not labored. CVS: Cardiac rhythm: sinus tachycardia; (100). GI / : Abdomen soft. Abdominal tenderness in the periumbilical area. SKIN: Skin is warm and dry. --20:23 Yenny Mcmahon. NURSING PROGRESS NOTES Pulse oximeter and NIBP monitor placed on patient; monitor alarms on. Patient gowned. Reassurance given to the patient. Two patient identifiers checked. Call light placed in reach. Side rails up x 1. Bed placed in lowest position. Brakes of bed on. Patient ready for evaluation- chart flagged and ED physician notified. --20:24 Yenny Mcmahon 20:40 10/07/2016 Site #1 started via IV in the right hand with an 20g angiocath, with aseptic technique and good blood return; one attempt. Blood drawn: rainbow set. Labeled in the presence of the patient and sent to the lab. Saline lock flushed with 10 mL saline. --20:55 Yenny Mcmahon Patient ID band checked for patient name and birthdate: patient confirmed. Blood samples drawn from the right hand peripheral IV site with Vacutainer by nurse ; labeled in presence of the patient and sent to lab: rainbow set. Line flushed with 10 mL normal saline post blood draw. Patient ID band checked for patient name and birthdate: patient confirmed. Instructions provided to collect clean catch urine and patient verbalized understanding. Clean catch urine collected with return of yellow-colored clear urine; sample sent to lab for urinalysis. Specimen labeled in the presence of the patient. --20:56 Yenny Mcmahon 21:01 10/07/2016 Started bag #1 1000 mL IV Fluids IV NS (Saline); at 1000 mL/hr over 1 hour(s) via site #1. Allergies verified and confirmed 5 rights. IV patency established. IV site checked: no pain, redness, or swelling. IV flushed thoroughly pre- and post-medication administration. --21:01 Yenny Mcmahon 21:10/07/2016 Toradol IVP 30 mg given over 1 minute(s) via site #1. Allergies verified and confirmed 5 rights. IV patency established. IV site checked: no pain, redness, or swelling. IV flushed thoroughly pre- and post-medication administration. IVP given by RN. --21:01 Yenny Mcmahon 21:10/07/2016 Zofran (Ondansetron HCl) IVP 4 mg given over 1 minute(s) via site #1. Allergies verified and confirmed 5 rights. IV patency established. IV site checked: no pain, redness, or swelling. IV flushed thoroughly pre- and post-medication administration. IVP given by RN. --21:02 Yenny Mcmahon 21:08 10/07/16. BP: 142/94. HR: 77. O2 saturation: 98%. --21:08 McQuoid, Vickie, ER Tech1 ( Lab at bedside for redraw). --21:14 Yenny Mcmahon Patient transported to [place] by stretcher with tech. (21:33 Oct 07 2016). --21:33 Yenny Mcmahon 22:11 10/07/2016 IV Fluids IV NS Discontinued: bag #1 completed. Total amount infused: 1000 mL. IV patency established. IV site checked: no pain, redness, or swelling. IV flushed thoroughly. --22:11 Yenny Mcmahon 22:17 10/07/2016 Decadron IVP 10 mg given over 4 minute(s) via site #1. Allergies verified and confirmed 5 rights. IV patency established. IV site checked: no pain, redness, or swelling. IV flushed thoroughly pre- and post-medication administration. IVP given by RN. --22:17 Yenny Mcmahon. DISPOSITION / DISCHARGE 22:15 10/07/16. BP: 128/60. HR: 70. RR: 20. O2 saturation: 98% on room air. Pain level now: 10. --22:16 Yenny Mcmahon 22:35 10/07/16. BP: 128/60. HR: 87. RR: 20. O2 saturation: 97% on room air. Temp: 98.9 F (oral). Pain level now: 06/03. --22:51 Yenny Mcmahon 22:30 10/07/2016 Site #1 removed upon discharge. Catheter intact. Bandaid applied. --22:51 Yenny Mcmahon 22:35 10/07/16. Condition at departure: stable. The goals identified in the patient's plan of care were met. No learning barriers present. Discharge instructions provided and reviewed with the patient. Reviewed medication(s) side effects, precautions, dosing and course information. Prescription(s) given to the patient. Reviewed referral to a military education coordinator for followup. Reviewed bland diet and need for increased fluid intake. Work note given. Patient verbalized understanding. Written instructions provided in Sami. ( Follow up with GI in two days. Return if symptoms worsen. Discussed diet options and need for follow up care to manage symptoms. Patient verbalized understanding and had no additional questions at this time.). The patient was discharged by the physician surgical services assistant. He was discharged home and accompanied by silver designer. He left the Emergency Department ambulatory and via private vehicle. Crane Manager driving. FALL RISK ASSESSMENT: Fall risk assessment completed. No fall risk identified. --22:51 Yenny Mcmahon. Locked/Released at 10/08/2016 1:17 by Yenny Mcmahon,
--- NOTE | 2016-10-08 01:18 | ED MED RECONCILIATION SUMMARY ---
Patient: HARJEET ARAGON Medication Reconciliation Report [facility] VisitID: [id number] [address] [place] [address] 21y, M Registration Date/Time: 10/07/2016 Weight: 136.0 kg Height/Length: 70 in. BMI: 43.0 ALLERGIES: No Known Drug Allergy The patient's Home Medications are listed below: NONE. The source(s) of the original Home Medication information: patient The following Medications were given to the patient in the Emergency Department: IV NS IV Fluids bolus 0, then 1000 mL/hr, administered: 10/07/2016 9:01:00 PM Toradol [IVP] IVP 30 mg, administered: 10/07/2016 9:01:00 PM Zofran [IVP] IVP 4 mg, administered: 10/07/2016 9:01:00 PM Decadron [IVP] IVP 10 mg, administered: 10/07/2016 10:17:00 PM The following Medications were prescribed to the patient: Zofran 4 mg: Take 1 orally every six hours as needed for nausea/vomiting. Dispense ten (10). No refills. Substitution is permissible. -- Shey Chisholm, A.R.N.P. Bentyl 20 mg tablets: take 1 orally every 6 hours as needed. Dispense thirty (30). No refills. Substitution is permissible. -- Shey Chisholm, A.R.N.P. Ultram 50 mg tablets: take 1-2 orally every 6 hours as needed for pain. Dispense twenty (20). No refills. Substitution is permissible. -- Shey Chisholm A.R.N.P. Medrol Dosepak: take according to package directions. Dispense one (1) dosepak. No refills. Substitution is permissible. -- Shey Chisholm A.R.N.P.
--- NOTE | 2016-10-08 01:18 | ED MED RECONCILIATION SUMMARY ---
Patient: HARJEET ARAGON Medication Reconciliation Report [facility] VisitID: [id number] [address] [place] [address] 21y, M Registration Date/Time: 10/07/2016 Weight: 136.0 kg Height/Length: 70 in. BMI: 43.0 ALLERGIES: No Known Drug Allergy The patient's Home Medications are listed below: NONE. The source(s) of the original Home Medication information: patient The following Medications were given to the patient in the Emergency Department: IV NS IV Fluids bolus 0, then 1000 mL/hr, administered: 10/07/2016 9:01:00 PM Toradol [IVP] IVP 30 mg, administered: 10/07/2016 9:01:00 PM Zofran [IVP] IVP 4 mg, administered: 10/07/2016 9:01:00 PM Decadron [IVP] IVP 10 mg, administered: 10/07/2016 10:17:00 PM The following Medications were prescribed to the patient: Zofran 4 mg: Take 1 orally every six hours as needed for nausea/vomiting. Dispense ten (10). No refills. Substitution is permissible. -- Shey Chisholm, A.R.N.P. Bentyl 20 mg tablets: take 1 orally every 6 hours as needed. Dispense thirty (30). No refills. Substitution is permissible. -- Shey Chisholm, A.R.N.P. Ultram 50 mg tablets: take 1-2 orally every 6 hours as needed for pain. Dispense twenty (20). No refills. Substitution is permissible. -- Shey Chisholm A.R.N.P. Medrol Dosepak: take according to package directions. Dispense one (1) dosepak. No refills. Substitution is permissible. -- Shey Chisholm A.R.N.P.
--- NOTE | 2016-10-08 01:18 | ED MAR SUMMARY ---
..... Medication Administration Record [facility] [address] [place] [address] Patient: HARJEET ARAGON Visit ID: [id number] 21y, M Weight: 136.0 kg Height/Length: 70 in BMI: 43 ALLERGIES: No Known Drug Allergy Start 21:10/07/2016 Yenny Mcmahon,, Stop 22:11 10/07/2016 Yenny Mcmahon, Medication Administered: IV NS (SALINE), Dose: IV Fluids over 1 hour(s), Rate: 1000 mL/hr, Dispensed: 1000 mL bag, Site: #1 right hand. Medication Ordered: IV NS : initial bolus 1000 mL (1000 mL/hr), then none - (NOW). Given 21:10/07/2016 Yenny Mcmahon, Medication Administered: TORADOL [IVP], Dose: 30 mg IVP over 1 minute(s), Site: #1 right hand. Medication Ordered: Toradol IV 30 mg (NOW). Given :10/07/2016 Yenny Mcmahon, Medication Administered: ZOFRAN [IVP] (ONDANSETRON HCL), Dose: 4 mg IVP over 1 minute(s), Site: #1 right hand. Medication Ordered: Zofran IV 4 mg (NOW). Given 22:10/07/2016 Yenny Mcmahon, Medication Administered: DECADRON [IVP], Dose: 10 mg IVP over 4 minute(s), Site: #1 right hand. Medication Ordered: Decadron IV 10 mg (NOW).
--- NOTE | 2016-10-08 01:18 | ED DISCHARGE INSTRUCTIONS ---
Patient: HARJEET ARAGON General Instructions [facility] VisitID: [id number] [place] [address] 21y, M Registration Date/Time: 10/07/2016 Crohn's disease in the small intestine. No complications present. INSTRUCTIONS Do not work today, for two days. Avoid fried/greasy foods. (HTN). Warnings: GENERAL WARNINGS: Return or contact your physician immediately if your condition worsens or changes unexpectedly, if not improving as expected, or if other problems arise. SPECIFICALLY, return if you develop pain in the abdomen or pelvis, fever, the inability to keep fluids down, blood in vomitus, blood in diarrhea, fainting or lightheadedness. Prescription Medications: Zofran 4 mg: Take 1 orally every six hours as needed for nausea/vomiting. Dispense ten (10). No refills. Substitution is permissible. Bentyl 20 mg tablets: take 1 orally every 6 hours as needed. Dispense thirty (30). No refills. Substitution is permissible. Ultram 50 mg tablets: take 1-2 orally every 6 hours as needed for pain. Dispense twenty (20). No refills. Substitution is permissible. Medrol Dosepak: take according to package directions. Dispense one (1) dosepak. No refills. Substitution is permissible. Understanding of the discharge instructions verbalized by patient. Follow-up with: Pro William MD, Gastroenterology, [address] [place] [address], [address] [place] [address] Ave[address] , [place], [id number]; Umang Hogan MD, Gastroenterology, [address] [place] [address], [address] [place] [address], [address], [place], [id number]; Anuja Irving MD, Gastroenteroloy, [address] [place] [address], [address] [place] [address] [address], [place], [id number]; Juan Antonio Whiting MD, Gastroenteroloy, [address] [place] [address], [address] [place] [address] [address], [place], [id number]; Reed Romero MD, Gastroenteroloy, [address] [place] [address], [address] [place] [address] [address], [place], [id number] Follow up in about two days even if well. Call for an appointment. Summary of care provided to patient. ADDITIONAL INFORMATION Crohns Disease Crohns disease is a chronic inflammation of the intestinal tract that comes and goes. Crohns is a form of Inflammatory Bowel Disease. The exact cause is not known. Chronic diarrhea may alternate with constipation. During a symptom flare, there may be intense abdominal pain and fever. Mucus, blood or pus may appear in the stool. This is a chronic illness and episodes of inflammation come and go over time. When the disease is not active, there are usually no symptoms. Home Care: DIET: Talk to your doctor or ask for a referral to a dietitian to develop a meal plan that works for you. Learn what foods worsen your symptoms. Keeping a food diary may help with this. Eating smaller meals at more frequent intervals (4-5 times a day). Avoid greasy or fried foods. Limit consumption of milk and milk products (butter, margarine, cream sauces). If you are lactose intolerant ask your doctor to advise a digestive supplement. During a flare-up of your symptoms, avoid high fiber foods such as nuts, corn, popcorn and [place] vegetables. MEDICATIONS: For mild to moderate cramping and diarrhea, you may use Imodium AD ([id number]), unless another medicine was prescribed. For acute flares of your illness, prescription medicines can be prescribed. Contact your doctor if this is needed. Follow Up with your doctor as advised by your staff. Support Groups for persons Crohns disease can be a source of useful information on how others are coping with this illness. They are available in person, on the phone, or via the Internet. Contact the following resources for more information. Crohns and [employer] 543.127.3734 www.ccfa.org National Digestive Diseases Information Clearinghouse (NDDIC) 964.324.3841 www.digestive.niddk.nih.gov Get Prompt Medical Attention if any of the following occur: Fever of 100.4F(38C) or higher, or as directed by your healthcare provider Abdominal pain that does not respond to usual measures Mucus, pus or blood in the stool (dark or bright red) Repeated vomiting Abdominal swelling and pain that does not go away after a few hours Ondansetron Oral disintegrating tablet What is this medicine? ONDANSETRON (on NITESH se sommer) is used to treat nausea and vomiting caused by chemotherapy. It is also used to prevent or treat nausea and vomiting after surgery. How should I use this medicine? These tablets are made to dissolve in the mouth. Do not try to push the tablet through the foil backing. With dry hands, peel away the foil backing and gently remove the tablet. Place the tablet in the mouth and allow it to dissolve, then swallow. While you may take these tablets with water, it is not necessary to do so. Talk to your meat grader regarding the use of this medicine in children. Special care may be needed. What side effects may I notice from receiving this medicine? Side effects that you should report to your doctor or health personal care service provider as soon as possible: allergic reactions like skin rash, itching or hives, swelling of the face, lips, or tongue breathing problems dizziness fast or irregular heartbeat feeling faint or lightheaded, falls fever and chills swelling of the hands and feet tightness in the chest Side effects that usually do not require medical attention (report to your doctor or health personal care service provider if they continue or are bothersome): constipation or diarrhea headache What may interact with this medicine? Do not take this medicine with any of the following medications: -apomorphine -cisapride -dofetilide -dronedarone -pimozide -thioridazine -ziprasidone This medicine may also interact with the following medications: -carbamazepine -phenytoin -rifampicin -tramadol -other medicines that prolong the QT interval (cause an abnormal heart rhythm) What if I miss a dose? If you miss a dose, take it as soon as you can. If it is almost time for your next dose, take only that dose. Do not take double or extra doses. Where should I keep my medicine? Keep out of the reach of children. Store between 2 and 30 degrees C (36 and 86 degrees F). Throw away any unused medicine after the expiration date. What should I tell my health care provider before I take this medicine? They need to know if you have any of these conditions: heart disease history of irregular heartbeat liver disease low levels of magnesium or potassium in the blood an unusual or allergic reaction to ondansetron, granisetron, other medicines, foods, dyes, or preservatives or trying to get breast-feeding What should I watch for while using this medicine? Check with your doctor or health personal care service provider as soon as you can if you have any sign of an allergic reaction. Dicyclomine Hydrochloride Oral tablet What is this medicine? DICYCLOMINE (dye GILMERGanesh jennie spears) is used to treat bowel problems including irritable bowel syndrome. How should I use this medicine? Take this medicine by mouth with a glass of water. Follow the directions on the prescription label. It is best to take this medicine on an empty stomach, 30 minutes to 1 hour before meals. Take your medicine at regular intervals. Do not take your medicine more often than directed. Talk to your meat grader regarding the use of this medicine in children. Special care may be needed. While this drug may be prescribed for children as young as 6 months of age for selected conditions, precautions do apply. Patients over 65 years old may have a stronger reaction and need a smaller dose. What side effects may I notice from receiving this medicine? Side effects that you should report to your doctor or health personal care service provider as soon as possible: agitation, nervousness, confusion difficulty swallowing dizziness, drowsiness fast or slow heartbeat hallucinations pain or difficulty passing urine Side effects that usually do not require medical attention (report to your doctor or health personal care service provider if they continue or are bothersome): constipation headache nausea or vomiting sexual difficulty What may interact with this medicine? amantadine antacids benztropine digoxin disopyramide medicines for allergies, colds and breathing difficulties medicines for alzheimer's disease medicines for anxiety or sleeping problems medicines for depression or psychotic disturbances medicines for diarrhea medicines for pain metoclopramide tegaserod What if I miss a dose? If you miss a dose, take it as soon as you can. If it is almost time for your next dose, take only that dose. Do not take double or extra doses. Where should I keep my medicine? Keep out of the reach of children. Store at room temperature below 30 degrees C (86 degrees F). Protect from light. Throw away any unused medicine after the expiration date. What should I tell my health care provider before I take this medicine? They need to know if you have any of these conditions: difficulty passing urine esophagus problems or heartburn glaucoma heart disease, or previous heart attack myasthenia gravis prostate trouble stomach infection, or obstruction ulcerative colitis an unusual or allergic reaction to dicyclomine, other medicines, foods, dyes, or preservatives or trying to get breast-feeding What should I watch for while using this medicine? You may get drowsy, dizzy, or have blurred vision. Do not drive, use machinery, or do anything that needs mental alertness until you know how this medicine affects you. To reduce the risk of dizzy or fainting spells, do not sit or stand up quickly, especially if you are an older patient. Alcohol can make you more drowsy, avoid alcoholic drinks. Stay out of bright light and wear sunglasses if this medicine makes your eyes more sensitive to light. Avoid extreme heat (hot tubs, saunas). This medicine can cause you to sweat less than normal. Your body temperature could increase to dangerous levels, which may lead to heat stroke. Antacids can stop this medicine from working. If you get an upset stomach and want to take an antacid, make sure there is an interval of at least 1 to 2 hours before or after you take this medicine. Your mouth may get dry. Chewing sugarless gum or sucking hard candy, and drinking plenty of water may help. Contact your doctor if the problem does not go away or is severe. Tramadol Hydrochloride Oral tablet What is this medicine? TRAMADOL (TRA ma dole) is a pain reliever. It is used to treat moderate to severe pain in adults. How should I use this medicine? Take this medicine by mouth with a full glass of water. Follow the directions on the prescription label. If the medicine upsets your stomach, take it with food or milk. Do not take more medicine than you are told to take. Talk to your meat grader regarding the use of this medicine in children. Special care may be needed. What side effects may I notice from receiving this medicine? Side effects that you should report to your doctor or health personal care service provider as soon as possible: allergic reactions like skin rash, itching or hives, swelling of the face, lips, or tongue breathing difficulties, wheezing confusion itching light headedness or fainting spells redness, blistering, peeling or loosening of the skin, including inside the mouth seizures Side effects that usually do not require medical attention (report to your doctor or health personal care service provider if they continue or are bothersome): constipation dizziness drowsiness headache nausea, vomiting What may interact with this medicine? Do not take this medicine with any of the following medications: MAOIs like Carbex, Eldepryl, Marplan, Nardil, and Parnate This medicine may also interact with the following medications: alcohol or medicines that contain alcohol antihistamines benzodiazepines bupropion carbamazepine or oxcarbazepine clozapine cyclobenzaprine digoxin furazolidone linezolid medicines for depression, anxiety, or psychotic disturbances medicines for migraine headache like almotriptan, eletriptan, frovatriptan, naratriptan, rizatriptan, sumatriptan, zolmitriptan medicines for pain like pentazocine, buprenorphine, butorphanol, meperidine, nalbuphine, and propoxyphene medicines for sleep muscle relaxants naltrexone phenobarbital phenothiazines like perphenazine, thioridazine, chlorpromazine, mesoridazine, fluphenazine, prochlorperazine, promazine, and trifluoperazine procarbazine warfarin What if I miss a dose? If you miss a dose, take it as soon as you can. If it is almost time for your next dose, take only that dose. Do not take double or extra doses. Where should I keep my medicine? Keep out of the reach of children. Store at room temperature between 15 and 30 degrees C (59 and 86 degrees F). Keep container tightly closed. Throw away any unused medicine after the expiration date. What should I tell my health care provider before I take this medicine? They need to know if you have any of these conditions: brain tumor depression drug abuse or addiction head injury if you frequently drink alcohol containing drinks kidney disease or trouble passing urine liver disease lung disease, asthma, or breathing problems seizures or epilepsy suicidal thoughts, plans, or attempt; a previous suicide attempt by you or a family member an unusual or allergic reaction to tramadol, codeine, other medicines, foods, dyes, or preservatives or trying to get breast-feeding What should I watch for while using this medicine? Tell your doctor or health personal care service provider if your pain does not go away, if it gets worse, or if you have new or a different type of pain. You may develop tolerance to the medicine. Tolerance means that you will need a higher dose of the medicine for pain relief. Tolerance is normal and is expected if you take this medicine for a long time. Do not suddenly stop taking your medicine because you may develop a severe reaction. Your body becomes used to the medicine. This does NOT mean you are addicted. Addiction is a behavior related to getting and using a drug for a non-medical reason. If you have pain, you have a medical reason to take pain medicine. Your doctor will tell you how much medicine to take. If your doctor wants you to stop the medicine, the dose will be slowly lowered over time to avoid any side effects. You may get drowsy or dizzy. Do not drive, use machinery, or do anything that needs mental alertness until you know how this medicine affects you. Do not stand or sit up quickly, especially if you are an older patient. This reduces the risk of dizzy or fainting spells. Alcohol can increase or decrease the effects of this medicine. Avoid alcoholic drinks. You may have constipation. Try to have a bowel movement at least every 2 to 3 days. If you do not have a bowel movement for 3 days, call your doctor or health personal care service provider. Your mouth may get dry. Chewing sugarless gum or sucking hard candy, and drinking plenty of water may help. Contact your doctor if the problem does not go away or is severe. Methylprednisolone Oral tablet What is this medicine? METHYLPREDNISOLONE (meth ill pred NISS oh lone) is a corticosteroid. It is commonly used to treat inflammation of the skin, joints, lungs, and other organs. Common conditions treated include asthma, allergies, and arthritis. It is also used for other conditions, such as blood disorders and diseases of the adrenal glands. How should I use this medicine? Take this medicine by mouth with a drink of water. Follow the directions on the prescription label. Take it with food or milk to avoid stomach upset. If you are taking this medicine once a day, take it in the morning. Do not take more medicine than you are told to take. Do not suddenly stop taking your medicine because you may develop a severe reaction. Your doctor will tell you how much medicine to take. If your doctor wants you to stop the medicine, the dose may be slowly lowered over time to avoid any side effects. Talk to your meat grader regarding the use of this medicine in children. Special care may be needed. What side effects may I notice from receiving this medicine? Side effects that you should report to your doctor or health personal care service provider as soon as possible: allergic reactions like skin rash, itching or hives, swelling of the face, lips, or tongue eye pain, decreased or blurred vision, or bulging eyes fever, sore throat, sneezing, cough, or other signs of infection, wounds that will not heal increased thirst mental depression, mood swings, mistaken feelings of self importance or of being mistreated pain in hips, back, ribs, arms, shoulders, or legs swelling of the ankles, feet, hands trouble passing urine or change in the amount of urine Side effects that usually do not require medical attention (report to your doctor or health personal care service provider if they continue or are bothersome): confusion, excitement, restlessness headache nausea, vomiting skin problems, acne, thin and shiny skin weight gain What may interact with this medicine? Do not take this medicine with any of the following medications: mifepristone This medicine may also interact with the following medications: tacrolimus vaccines warfarin What if I miss a dose? If you miss a dose, take it as soon as you can. If it is almost time for your next dose, talk to your doctor or health personal care service provider. You may need to miss a dose or take an extra dose. Do not take double or extra doses without advice. Where should I keep my medicine? Keep out of the reach of children. Store at room temperature between 20 and 25 degrees C (68 and 77 degrees F). Throw away any unused medicine after the expiration date. What should I tell my health care provider before I take this medicine? They need to know if you have any of these conditions: Westminster's syndrome diabetes glaucoma heart problems or disease high blood pressure infection such as herpes, measles, tuberculosis, or chickenpox kidney disease liver disease mental problems myasthenia gravis osteoporosis seizures stomach ulcer or intestine disease including colitis and diverticulitis thyroid problem an unusual or allergic reaction to lactose, methylprednisolone, other medicines, foods, dyes, or preservatives or trying to get breast-feeding What should I watch for while using this medicine? Visit your doctor or health personal care service provider for regular checks on your progress. If you are taking this medicine for a long time, carry an identification card with your name and address, the type and dose of your medicine, and your doctor's name and address. The medicine may increase your risk of getting an infection. Stay away from people who are sick. Tell your doctor or health personal care service provider if you are around anyone with measles or chickenpox. If you are going to have surgery, tell your doctor or health personal care service provider that you have taken this medicine within the last twelve months. Ask your doctor or health personal care service provider about your diet. You may need to lower the amount of salt you eat. The medicine can increase your blood sugar. If you are a diabetic check with your doctor if you need help adjusting the dose of your diabetic medicine. You have been given the following additional information: Crohn's Disease Ondansetron Oral disintegrating tablet Dicyclomine Hydrochloride Oral tablet Tramadol Hydrochloride Oral tablet Methylprednisolone Oral tablet Do not work today, for two days. (Electronically signed by Shey Chisholm A.R.N.P. 10/07/2016 22:39)
--- NOTE | 2016-10-08 01:18 | ED MAR SUMMARY ---
..... Medication Administration Record [facility] [address] [place] [address] Patient: HARJEET ARAGON Visit ID: [id number] 21y, M Weight: 136.0 kg Height/Length: 70 in BMI: 43 ALLERGIES: No Known Drug Allergy Start 21:10/07/2016 Yenny Mcmahon,, Stop 22:11 10/07/2016 Yenny Mcmahon, Medication Administered: IV NS (SALINE), Dose: IV Fluids over 1 hour(s), Rate: 1000 mL/hr, Dispensed: 1000 mL bag, Site: #1 right hand. Medication Ordered: IV NS : initial bolus 1000 mL (1000 mL/hr), then none - (NOW). Given 21:10/07/2016 Yenny Mcmahon, Medication Administered: TORADOL [IVP], Dose: 30 mg IVP over 1 minute(s), Site: #1 right hand. Medication Ordered: Toradol IV 30 mg (NOW). Given :10/07/2016 Yenny Mcmahon, Medication Administered: ZOFRAN [IVP] (ONDANSETRON HCL), Dose: 4 mg IVP over 1 minute(s), Site: #1 right hand. Medication Ordered: Zofran IV 4 mg (NOW). Given 22:10/07/2016 Yenny Mcmahon, Medication Administered: DECADRON [IVP], Dose: 10 mg IVP over 4 minute(s), Site: #1 right hand. Medication Ordered: Decadron IV 10 mg (NOW).
--- NOTE | 2016-10-08 01:18 | ED DISCHARGE INSTRUCTIONS ---
Patient: HARJEET ARAGON General Instructions [facility] VisitID: [id number] [place] [address] 21y, M Registration Date/Time: 10/07/2016 Crohn's disease in the small intestine. No complications present. INSTRUCTIONS Do not work today, for two days. Avoid fried/greasy foods. (HTN). Warnings: GENERAL WARNINGS: Return or contact your physician immediately if your condition worsens or changes unexpectedly, if not improving as expected, or if other problems arise. SPECIFICALLY, return if you develop pain in the abdomen or pelvis, fever, the inability to keep fluids down, blood in vomitus, blood in diarrhea, fainting or lightheadedness. Prescription Medications: Zofran 4 mg: Take 1 orally every six hours as needed for nausea/vomiting. Dispense ten (10). No refills. Substitution is permissible. Bentyl 20 mg tablets: take 1 orally every 6 hours as needed. Dispense thirty (30). No refills. Substitution is permissible. Ultram 50 mg tablets: take 1-2 orally every 6 hours as needed for pain. Dispense twenty (20). No refills. Substitution is permissible. Medrol Dosepak: take according to package directions. Dispense one (1) dosepak. No refills. Substitution is permissible. Understanding of the discharge instructions verbalized by patient. Follow-up with: Pro William MD, Gastroenterology, [address] [place] [address], [address] [place] [address] Ave[address] , [place], [id number]; Umang Hogan MD, Gastroenterology, [address] [place] [address], [address] [place] [address], [address], [place], [id number]; Anuja Irving MD, Gastroenteroloy, [address] [place] [address], [address] [place] [address] [address], [place], [id number]; Juan Antonio Whiting MD, Gastroenteroloy, [address] [place] [address], [address] [place] [address] [address], [place], [id number]; Reed Romero MD, Gastroenteroloy, [address] [place] [address], [address] [place] [address] [address], [place], [id number] Follow up in about two days even if well. Call for an appointment. Summary of care provided to patient. ADDITIONAL INFORMATION Crohns Disease Crohns disease is a chronic inflammation of the intestinal tract that comes and goes. Crohns is a form of Inflammatory Bowel Disease. The exact cause is not known. Chronic diarrhea may alternate with constipation. During a symptom flare, there may be intense abdominal pain and fever. Mucus, blood or pus may appear in the stool. This is a chronic illness and episodes of inflammation come and go over time. When the disease is not active, there are usually no symptoms. Home Care: DIET: Talk to your doctor or ask for a referral to a dietitian to develop a meal plan that works for you. Learn what foods worsen your symptoms. Keeping a food diary may help with this. Eating smaller meals at more frequent intervals (4-5 times a day). Avoid greasy or fried foods. Limit consumption of milk and milk products (butter, margarine, cream sauces). If you are lactose intolerant ask your doctor to advise a digestive supplement. During a flare-up of your symptoms, avoid high fiber foods such as nuts, corn, popcorn and [place] vegetables. MEDICATIONS: For mild to moderate cramping and diarrhea, you may use Imodium AD ([id number]), unless another medicine was prescribed. For acute flares of your illness, prescription medicines can be prescribed. Contact your doctor if this is needed. Follow Up with your doctor as advised by your staff. Support Groups for persons Crohns disease can be a source of useful information on how others are coping with this illness. They are available in person, on the phone, or via the Internet. Contact the following resources for more information. Crohns and [employer] 366.223.6245 www.ccfa.org National Digestive Diseases Information Clearinghouse (NDDIC) 364.688.1049 www.digestive.niddk.nih.gov Get Prompt Medical Attention if any of the following occur: Fever of 100.4F(38C) or higher, or as directed by your healthcare provider Abdominal pain that does not respond to usual measures Mucus, pus or blood in the stool (dark or bright red) Repeated vomiting Abdominal swelling and pain that does not go away after a few hours Ondansetron Oral disintegrating tablet What is this medicine? ONDANSETRON (on NITESH se sommer) is used to treat nausea and vomiting caused by chemotherapy. It is also used to prevent or treat nausea and vomiting after surgery. How should I use this medicine? These tablets are made to dissolve in the mouth. Do not try to push the tablet through the foil backing. With dry hands, peel away the foil backing and gently remove the tablet. Place the tablet in the mouth and allow it to dissolve, then swallow. While you may take these tablets with water, it is not necessary to do so. Talk to your tunnel inspector regarding the use of this medicine in children. Special care may be needed. What side effects may I notice from receiving this medicine? Side effects that you should report to your doctor or health primary care coordinator as soon as possible: allergic reactions like skin rash, itching or hives, swelling of the face, lips, or tongue breathing problems dizziness fast or irregular heartbeat feeling faint or lightheaded, falls fever and chills swelling of the hands and feet tightness in the chest Side effects that usually do not require medical attention (report to your doctor or health primary care coordinator if they continue or are bothersome): constipation or diarrhea headache What may interact with this medicine? Do not take this medicine with any of the following medications: -apomorphine -cisapride -dofetilide -dronedarone -pimozide -thioridazine -ziprasidone This medicine may also interact with the following medications: -carbamazepine -phenytoin -rifampicin -tramadol -other medicines that prolong the QT interval (cause an abnormal heart rhythm) What if I miss a dose? If you miss a dose, take it as soon as you can. If it is almost time for your next dose, take only that dose. Do not take double or extra doses. Where should I keep my medicine? Keep out of the reach of children. Store between 2 and 30 degrees C (36 and 86 degrees F). Throw away any unused medicine after the expiration date. What should I tell my health care provider before I take this medicine? They need to know if you have any of these conditions: heart disease history of irregular heartbeat liver disease low levels of magnesium or potassium in the blood an unusual or allergic reaction to ondansetron, granisetron, other medicines, foods, dyes, or preservatives or trying to get breast-feeding What should I watch for while using this medicine? Check with your doctor or health primary care coordinator as soon as you can if you have any sign of an allergic reaction. Dicyclomine Hydrochloride Oral tablet What is this medicine? DICYCLOMINE (dye GILMERGanesh jennie spears) is used to treat bowel problems including irritable bowel syndrome. How should I use this medicine? Take this medicine by mouth with a glass of water. Follow the directions on the prescription label. It is best to take this medicine on an empty stomach, 30 minutes to 1 hour before meals. Take your medicine at regular intervals. Do not take your medicine more often than directed. Talk to your tunnel inspector regarding the use of this medicine in children. Special care may be needed. While this drug may be prescribed for children as young as 6 months of age for selected conditions, precautions do apply. Patients over 65 years old may have a stronger reaction and need a smaller dose. What side effects may I notice from receiving this medicine? Side effects that you should report to your doctor or health primary care coordinator as soon as possible: agitation, nervousness, confusion difficulty swallowing dizziness, drowsiness fast or slow heartbeat hallucinations pain or difficulty passing urine Side effects that usually do not require medical attention (report to your doctor or health primary care coordinator if they continue or are bothersome): constipation headache nausea or vomiting sexual difficulty What may interact with this medicine? amantadine antacids benztropine digoxin disopyramide medicines for allergies, colds and breathing difficulties medicines for alzheimer's disease medicines for anxiety or sleeping problems medicines for depression or psychotic disturbances medicines for diarrhea medicines for pain metoclopramide tegaserod What if I miss a dose? If you miss a dose, take it as soon as you can. If it is almost time for your next dose, take only that dose. Do not take double or extra doses. Where should I keep my medicine? Keep out of the reach of children. Store at room temperature below 30 degrees C (86 degrees F). Protect from light. Throw away any unused medicine after the expiration date. What should I tell my health care provider before I take this medicine? They need to know if you have any of these conditions: difficulty passing urine esophagus problems or heartburn glaucoma heart disease, or previous heart attack myasthenia gravis prostate trouble stomach infection, or obstruction ulcerative colitis an unusual or allergic reaction to dicyclomine, other medicines, foods, dyes, or preservatives or trying to get breast-feeding What should I watch for while using this medicine? You may get drowsy, dizzy, or have blurred vision. Do not drive, use machinery, or do anything that needs mental alertness until you know how this medicine affects you. To reduce the risk of dizzy or fainting spells, do not sit or stand up quickly, especially if you are an older patient. Alcohol can make you more drowsy, avoid alcoholic drinks. Stay out of bright light and wear sunglasses if this medicine makes your eyes more sensitive to light. Avoid extreme heat (hot tubs, saunas). This medicine can cause you to sweat less than normal. Your body temperature could increase to dangerous levels, which may lead to heat stroke. Antacids can stop this medicine from working. If you get an upset stomach and want to take an antacid, make sure there is an interval of at least 1 to 2 hours before or after you take this medicine. Your mouth may get dry. Chewing sugarless gum or sucking hard candy, and drinking plenty of water may help. Contact your doctor if the problem does not go away or is severe. Tramadol Hydrochloride Oral tablet What is this medicine? TRAMADOL (TRA ma dole) is a pain reliever. It is used to treat moderate to severe pain in adults. How should I use this medicine? Take this medicine by mouth with a full glass of water. Follow the directions on the prescription label. If the medicine upsets your stomach, take it with food or milk. Do not take more medicine than you are told to take. Talk to your tunnel inspector regarding the use of this medicine in children. Special care may be needed. What side effects may I notice from receiving this medicine? Side effects that you should report to your doctor or health primary care coordinator as soon as possible: allergic reactions like skin rash, itching or hives, swelling of the face, lips, or tongue breathing difficulties, wheezing confusion itching light headedness or fainting spells redness, blistering, peeling or loosening of the skin, including inside the mouth seizures Side effects that usually do not require medical attention (report to your doctor or health primary care coordinator if they continue or are bothersome): constipation dizziness drowsiness headache nausea, vomiting What may interact with this medicine? Do not take this medicine with any of the following medications: MAOIs like Carbex, Eldepryl, Marplan, Nardil, and Parnate This medicine may also interact with the following medications: alcohol or medicines that contain alcohol antihistamines benzodiazepines bupropion carbamazepine or oxcarbazepine clozapine cyclobenzaprine digoxin furazolidone linezolid medicines for depression, anxiety, or psychotic disturbances medicines for migraine headache like almotriptan, eletriptan, frovatriptan, naratriptan, rizatriptan, sumatriptan, zolmitriptan medicines for pain like pentazocine, buprenorphine, butorphanol, meperidine, nalbuphine, and propoxyphene medicines for sleep muscle relaxants naltrexone phenobarbital phenothiazines like perphenazine, thioridazine, chlorpromazine, mesoridazine, fluphenazine, prochlorperazine, promazine, and trifluoperazine procarbazine warfarin What if I miss a dose? If you miss a dose, take it as soon as you can. If it is almost time for your next dose, take only that dose. Do not take double or extra doses. Where should I keep my medicine? Keep out of the reach of children. Store at room temperature between 15 and 30 degrees C (59 and 86 degrees F). Keep container tightly closed. Throw away any unused medicine after the expiration date. What should I tell my health care provider before I take this medicine? They need to know if you have any of these conditions: brain tumor depression drug abuse or addiction head injury if you frequently drink alcohol containing drinks kidney disease or trouble passing urine liver disease lung disease, asthma, or breathing problems seizures or epilepsy suicidal thoughts, plans, or attempt; a previous suicide attempt by you or a family member an unusual or allergic reaction to tramadol, codeine, other medicines, foods, dyes, or preservatives or trying to get breast-feeding What should I watch for while using this medicine? Tell your doctor or health primary care coordinator if your pain does not go away, if it gets worse, or if you have new or a different type of pain. You may develop tolerance to the medicine. Tolerance means that you will need a higher dose of the medicine for pain relief. Tolerance is normal and is expected if you take this medicine for a long time. Do not suddenly stop taking your medicine because you may develop a severe reaction. Your body becomes used to the medicine. This does NOT mean you are addicted. Addiction is a behavior related to getting and using a drug for a non-medical reason. If you have pain, you have a medical reason to take pain medicine. Your doctor will tell you how much medicine to take. If your doctor wants you to stop the medicine, the dose will be slowly lowered over time to avoid any side effects. You may get drowsy or dizzy. Do not drive, use machinery, or do anything that needs mental alertness until you know how this medicine affects you. Do not stand or sit up quickly, especially if you are an older patient. This reduces the risk of dizzy or fainting spells. Alcohol can increase or decrease the effects of this medicine. Avoid alcoholic drinks. You may have constipation. Try to have a bowel movement at least every 2 to 3 days. If you do not have a bowel movement for 3 days, call your doctor or health primary care coordinator. Your mouth may get dry. Chewing sugarless gum or sucking hard candy, and drinking plenty of water may help. Contact your doctor if the problem does not go away or is severe. Methylprednisolone Oral tablet What is this medicine? METHYLPREDNISOLONE (meth ill pred NISS oh lone) is a corticosteroid. It is commonly used to treat inflammation of the skin, joints, lungs, and other organs. Common conditions treated include asthma, allergies, and arthritis. It is also used for other conditions, such as blood disorders and diseases of the adrenal glands. How should I use this medicine? Take this medicine by mouth with a drink of water. Follow the directions on the prescription label. Take it with food or milk to avoid stomach upset. If you are taking this medicine once a day, take it in the morning. Do not take more medicine than you are told to take. Do not suddenly stop taking your medicine because you may develop a severe reaction. Your doctor will tell you how much medicine to take. If your doctor wants you to stop the medicine, the dose may be slowly lowered over time to avoid any side effects. Talk to your tunnel inspector regarding the use of this medicine in children. Special care may be needed. What side effects may I notice from receiving this medicine? Side effects that you should report to your doctor or health primary care coordinator as soon as possible: allergic reactions like skin rash, itching or hives, swelling of the face, lips, or tongue eye pain, decreased or blurred vision, or bulging eyes fever, sore throat, sneezing, cough, or other signs of infection, wounds that will not heal increased thirst mental depression, mood swings, mistaken feelings of self importance or of being mistreated pain in hips, back, ribs, arms, shoulders, or legs swelling of the ankles, feet, hands trouble passing urine or change in the amount of urine Side effects that usually do not require medical attention (report to your doctor or health primary care coordinator if they continue or are bothersome): confusion, excitement, restlessness headache nausea, vomiting skin problems, acne, thin and shiny skin weight gain What may interact with this medicine? Do not take this medicine with any of the following medications: mifepristone This medicine may also interact with the following medications: tacrolimus vaccines warfarin What if I miss a dose? If you miss a dose, take it as soon as you can. If it is almost time for your next dose, talk to your doctor or health primary care coordinator. You may need to miss a dose or take an extra dose. Do not take double or extra doses without advice. Where should I keep my medicine? Keep out of the reach of children. Store at room temperature between 20 and 25 degrees C (68 and 77 degrees F). Throw away any unused medicine after the expiration date. What should I tell my health care provider before I take this medicine? They need to know if you have any of these conditions: [place]'s syndrome diabetes glaucoma heart problems or disease high blood pressure infection such as herpes, measles, tuberculosis, or chickenpox kidney disease liver disease mental problems myasthenia gravis osteoporosis seizures stomach ulcer or intestine disease including colitis and diverticulitis thyroid problem an unusual or allergic reaction to lactose, methylprednisolone, other medicines, foods, dyes, or preservatives or trying to get breast-feeding What should I watch for while using this medicine? Visit your doctor or health primary care coordinator for regular checks on your progress. If you are taking this medicine for a long time, carry an identification card with your name and address, the type and dose of your medicine, and your doctor's name and address. The medicine may increase your risk of getting an infection. Stay away from people who are sick. Tell your doctor or health primary care coordinator if you are around anyone with measles or chickenpox. If you are going to have surgery, tell your doctor or health primary care coordinator that you have taken this medicine within the last twelve months. Ask your doctor or health primary care coordinator about your diet. You may need to lower the amount of salt you eat. The medicine can increase your blood sugar. If you are a diabetic check with your doctor if you need help adjusting the dose of your diabetic medicine. You have been given the following additional information: Crohn's Disease Ondansetron Oral disintegrating tablet Dicyclomine Hydrochloride Oral tablet Tramadol Hydrochloride Oral tablet Methylprednisolone Oral tablet Do not work today, for two days. (Electronically signed by Shey Chisholm A.R.N.P. 10/07/2016 22:39)
== END 2016-10-07 22:35 | disposition home or self-care (01) ==
LOC: ED SRH 19:41
DX: K50.00 Crohn's disease of small intestine without complications (principal)
CPT/HCPCS: 90004; 90074; 90100; 90469; 92235; 92530; 92760; 92761; 92762; 92763; 92764; 92765; 92766; 92767; 95059